=== PATIENT | female | born 1985 | race Caucasian/White ===

== ENCOUNTER 2017-03-20 08:07 | Emergency (ER) | payer MEDICAID ==
[2017-03-20 08:25] VITALS: BP 118/73
[2017-03-20 08:47] LABS: Basophils % (Auto) 0.4 % (0.0-1.8); Eosinophils % (Auto) 1.8 % (0.0-4.3); Hematocrit 45.8 % (30.3-42.9); Hemoglobin 14.5 gm/dl (10.1-14.3); Mean Corpuscular HGB Conc 32 % (30-34); Mean Corpuscular Hemoglobin 28 pg (28-32); Mean Corpuscular Volume 89 fl (79-97); Platelet Count 193 K/mm3 (140-440); Red Blood Count 5.15 M/mm3 (3.65-5.03); Red Cell Distribution Width 16.1 % (13.2-15.2); White Blood Count 8.3 K/mm3 (4.5-11.0)
[2017-03-20 08:52] LABS: Bacteria,Urine 1+ /HPF (Negative); Bilirubin,Urine NEG (Negative); Blood,Urine MOD (Negative); Ketones,Urine NEG (Negative); Leukocyte Esterase,Urine MOD (Negative); Mucus,Urine 2+ /HPF; Nitrite,Urine NEG (Negative); Urobilinogen,Urine < 2.0 mg/dL (<2.0)
[2017-03-20 08:57] LABS: Albumin 3.2 g/dL (3.9-5); Alkaline Phosphatase 49 units/L (35-129); Blood Urea Nitrogen 12 mg/dL (7-17); Calcium 8.2 mg/dL (8.4-10.2); Carbon Dioxide 20 mmol/L (22-30); Glucose 84 mg/dL (65-100); Lipase 39 units/L (13-60); Total Protein 6.3 g/dL (6.3-8.2)
[2017-03-20 08:58] LABS: Chloride 106.5 mmol/L (98-107); Sodium 138 mmol/L (137-145)
[2017-03-20 10:27] LABS: Alanine Aminotransferase 8 units/L (7-56); Anion Gap 16 mmol/L; Potassium 4.9 mmol/L (3.6-5.0)
[2017-03-20] MEDS ORDERED: XYLOCAINE 1% MPF 5 mL INFILTRATI ONE (11:39)
[2017-03-20] MEDS ORDERED: ROCEPHIN IM STA (11:39)
--- NOTE | 2017-03-20 13:50 | Emergency Department Report ---
Entered by MICHELLE STRONG, acting as scribe for BENJI HAHN PA. ED Female HPI - General Chief complaint: Urogenital-Female Stated complaint: POSS BLADDER INFECTION Time Seen by Provider: 03/20/17 10:50 Source: patient Mode of arrival: Ambulatory Limitations: No Limitations - History of Present Illness Initial comments: 31 y/o female with a PMHx of asthma and obesity presents to the ED c/o pelvic pain that began 1 day ago. pain on/oo.Rates pain a 6/10 in severity, which she describes as cramping in quality. Aggravated with urination and alleviated with nothing. No pain at present. Associated symptom includes dysuria, but she denies vaginal discharge, vaginal bleeding, hematuria, urinary urgency and frequency, fever, chills, nausea, vomiting, and diarrhea. Denies taking anything for her symptoms. LMP 02/28/2017. NKDA. No medication taken. Not concern for STD. MD Complaint: dysuria, pelvic pain Onset/Timin -: days(s) Location: other (pelvic area) Radiation: non-radiating Severity: moderate Severity scale (0 -10): 6 Quality: cramping Consistency: constant Improves with: none Worsens with: urination Are you Now?: No Last Menstrual Period: 02/28/17 EDC: 12/05/17 Associated Symptoms: denies other symptoms, abdominal pain (pelvic pain), dysuria. denies: vaginal discharge, vaginal bleeding, nausea/vomiting, fever/ chills, headaches, loss of appetite, hematuria, rash, seizure, shortness of breath, syncope, weakness - Related Data Sexually active: Yes (1 partner for years) Previous Rx's Medication Instructions Recorded Last Taken Type HYDROcodone/APAP 5-325 [[place] 1 each PO Q6HR PRN #16 tablet 01/03/15 Unknown Rx 5/325] Sulfamethoxazole/Trimethoprim 1 each PO Q12H #20 tablet 01/03/15 Unknown Rx [Bactrim Ds] Nitrofurantoin [place]/M-Cryst 100 mg PO Q12HR #14 capsule 03/20/17 Unknown Rx [Macrobid CAP] Phenazopyridine [Pyridium] 100 mg PO TID PRN #9 tab 03/20/17 Unknown Rx Allergies Allergy/AdvReac Type Severity Reaction Status Date / Time No Known Allergies Allergy Unverified 09/24/13 09:12 ED Review of Systems Comment: All other systems reviewed and negative Constitutional: denies: chills, fever Eyes: denies: eye pain, eye discharge, vision change ENT: denies: ear pain, throat pain Respiratory: denies: cough, orthopnea, shortness of breath, SOB with exertion, SOB at rest, stridor, wheezing Cardiovascular: denies: chest pain, palpitations, dyspnea on exertion, orthopnea , edema, syncope, paroxysmal nocturnal dyspnea Endocrine: no symptoms reported Gastrointestinal: abdominal pain (pelvic pain). denies: nausea, vomiting, diarrhea, constipation, hematemesis, melena, hematochezia Genitourinary: dysuria. denies: urgency, frequency, hematuria, discharge, abnormal menses, dyspareunia Musculoskeletal: denies: back pain, joint swelling, arthralgia Skin: denies: rash, lesions Neurological: denies: headache, weakness, numbness, paresthesias, confusion, abnormal gait, vertigo Psychiatric: denies: anxiety, depression Hematological/Lymphatic: denies: easy bleeding, easy bruising ED Past Medical Hx - Past Medical History Previous Medical History?: Yes Hx Hypertension: No Hx Congestive Heart Failure: No Hx Diabetes: No Hx Deep Vein Thrombosis: No Hx Renal Disease: No Hx Sickle Cell Disease: No Hx Seizures: No Hx Asthma: Yes (CHILD) Hx COPD: No Hx HIV: No Additional medical history: Obesity - Surgical History Past Surgical History?: No - Family History Family history: no significant - Social History Smoking Status: Current Every Day Smoker Substance Use Type: Alcohol - Medications Home Medications: Home Medications Medication Instructions Recorded Confirmed Last Taken Type HYDROcodone/APAP 5-325 [[place] 1 each PO Q6HR PRN #16 tablet 01/03/15 Unknown Rx 5/325] Sulfamethoxazole/Trimethoprim 1 each PO Q12H #20 tablet 01/03/15 Unknown Rx [Bactrim Ds] Nitrofurantoin [place]/M-Cryst 100 mg PO Q12HR #14 capsule 03/20/17 Unknown Rx [Macrobid CAP] Phenazopyridine [Pyridium] 100 mg PO TID PRN #9 tab 03/20/17 Unknown Rx ED Physical Exam - General Limitations: No Limitations General appearance: alert, in no apparent distress - Head Head exam: Present: atraumatic, normocephalic, normal inspection - Eye Eye exam: Present: normal appearance, PERRL, EOMI Pupils: Present: normal accommodation - ENT ENT exam: Present: normal exam, normal orophraynx, mucous membranes moist, TM's normal bilaterally, normal external ear exam - Neck Neck exam: Present: normal inspection, full ROM. Absent: tenderness, meningismus, lymphadenopathy - Respiratory Respiratory exam: Present: normal lung sounds bilaterally. Absent: respiratory distress, wheezes, rales, rhonchi, stridor, chest wall tenderness, accessory muscle use, decreased breath sounds - Cardiovascular Cardiovascular Exam: Present: regular rate, normal rhythm, normal heart sounds. Absent: systolic murmur, diastolic murmur, S3, S4 - GI/Abdominal GI/Abdominal exam: Present: soft, normal bowel sounds. Absent: distended, tenderness, guarding, rebound, rigid, mass, bruit, pulsatile mass, hernia - Extremities Exam Extremities exam: Present: normal inspection, full ROM, normal capillary refill. Absent: tenderness, pedal edema, joint swelling, calf tenderness - Back Exam Back exam: Present: normal inspection, full ROM. Absent: tenderness, CVA tenderness (R), CVA tenderness (L), muscle spasm, paraspinal tenderness, vertebral tenderness, rash noted - Neurological Exam Neurological exam: Present: alert, oriented X3, normal gait, reflexes normal. Absent: motor sensory deficit - Psychiatric Psychiatric exam: Present: normal affect, normal mood - Skin Skin exam: Present: warm, dry, intact, normal color. Absent: rash ED Course Vital Signs 03/20/17 08:10 Temperature 98.4 F Pulse Rate 92 H Respiratory 20 Rate Blood Pressure 118/73 O2 Sat by Pulse 100 Oximetry - Reevaluation(s) Reevaluation #1: 03/20/17 13:39 Rocephin 1 g in emergency room to cover urinary tract infection. Urine culture sent ED Medical Decision Making - Lab Data Result diagrams: 03/20/17 08:28 03/20/17 08:28 Lab Results 03/20/17 03/20/17 03/20/17 Range/Units 08:28 08:28 08:28 WBC 8.3 (4.5-11.0) K/mm3 RBC 5.15 H (3.65-5.03) M/mm3 Hgb 14.5 H (10.1-14.3) gm/dl Hct 45.8 H (30.3-42.9) % MCV 89 (79-97) fl MCH 28 (28-32) pg MCHC 32 (30-34) % RDW 16.1 H (13.2-15.2) % Plt Count 193 (140-440) K/mm3 Lymph % (Auto) 31.8 (13.4-35.0) % [place] % (Auto) 7.9 H (0.0-7.3) % Eos % (Auto) 1.8 (0.0-4.3) % Baso % (Auto) 0.4 (0.0-1.8) % Lymph # 2.7 (1.2-5.4) K/mm3 [place] # 0.7 (0.0-0.8) K/mm3 Eos # 0.2 (0.0-0.4) K/mm3 Baso # 0.0 (0.0-0.1) K/mm3 Seg Neutrophils % 58.1 (40.0-70.0) % Seg Neutrophils # 4.9 (1.8-7.7) K/mm3 Sodium 138 (137-145) mmol/L Potassium 4.9 (3.6-5.0) mmol/L Chloride 106.5 (98-107) mmol/L Carbon Dioxide 20 L (22-30) mmol/L Anion Gap 16 mmol/L BUN 12 (7-17) mg/dL Creatinine 0.5 L (0.7-1.2) mg/dL Estimated GFR > 60 ml/min BUN/Creatinine Ratio 24.00 % Glucose 84 (65-100) mg/dL Calcium 8.2 L (8.4-10.2) mg/dL Total Bilirubin 0.20 (0.1-1.2) mg/dL AST 17 (5-40) units/L ALT 8 (7-56) units/L Alkaline Phosphatase 49 (35-129) units/L Total Protein 6.3 (6.3-8.2) g/dL Albumin 3.2 L (3.9-5) g/dL Albumin/Globulin Ratio 1.0 % Lipase 39 (13-60) units/L HCG, Qual (Negative) Urine Color Yellow (Yellow) Urine Turbidity Slightly-cloudy (Clear) Urine pH 5.0 (5.0-7.0) Ur Specific [place] 1.021 (1.003-1.030) Urine Protein 100 mg/dl (Negative) mg/dL Urine Glucose (UA) Neg (Negative) mg/dL Urine Ketones Neg (Negative) mg/dL Urine Blood Mod (Negative) Urine Nitrite Neg (Negative) Urine Bilirubin Neg (Negative) Urine Urobilinogen < 2.0 (<2.0) mg/dL Ur Leukocyte Esterase Mod (Negative) Urine WBC (Auto) 131.0 H (0.0-6.0) /HPF Urine RBC (Auto) 22.0 (0.0-6.0) /HPF U Epithel Cells (Auto) 5.0 (0-13.0) /HPF Urine Bacteria (Auto) 1+ (Negative) /HPF Urine Mucus 2+ /HPF 03/20/17 Range/Units 08:28 WBC (4.5-11.0) K/mm3 RBC (3.65-5.03) M/mm3 Hgb (10.1-14.3) gm/dl Hct (30.3-42.9) % MCV (79-97) fl MCH (28-32) pg MCHC (30-34) % RDW (13.2-15.2) % Plt Count (140-440) K/mm3 Lymph % (Auto) (13.4-35.0) % [place] % (Auto) (0.0-7.3) % Eos % (Auto) (0.0-4.3) % Baso % (Auto) (0.0-1.8) % Lymph # (1.2-5.4) K/mm3 [place] # (0.0-0.8) K/mm3 Eos # (0.0-0.4) K/mm3 Baso # (0.0-0.1) K/mm3 Seg Neutrophils % (40.0-70.0) % Seg Neutrophils # (1.8-7.7) K/mm3 Sodium (137-145) mmol/L Potassium (3.6-5.0) mmol/L Chloride (98-107) mmol/L Carbon Dioxide (22-30) mmol/L Anion Gap mmol/L BUN (7-17) mg/dL Creatinine (0.7-1.2) mg/dL Estimated GFR ml/min BUN/Creatinine Ratio % Glucose (65-100) mg/dL Calcium (8.4-10.2) mg/dL Total Bilirubin (0.1-1.2) mg/dL AST (5-40) units/L ALT (7-56) units/L Alkaline Phosphatase (35-129) units/L Total Protein (6.3-8.2) g/dL Albumin (3.9-5) g/dL Albumin/Globulin Ratio % Lipase (13-60) units/L HCG, Qual Negative (Negative) Urine Color (Yellow) Urine Turbidity (Clear) Urine pH (5.0-7.0) Ur Specific [place] (1.003-1.030) Urine Protein (Negative) mg/dL Urine Glucose (UA) (Negative) mg/dL Urine Ketones (Negative) mg/dL Urine Blood (Negative) Urine Nitrite (Negative) Urine Bilirubin (Negative) Urine Urobilinogen (<2.0) mg/dL Ur Leukocyte Esterase (Negative) Urine WBC (Auto) (0.0-6.0) /HPF Urine RBC (Auto) (0.0-6.0) /HPF U Epithel Cells (Auto) (0-13.0) /HPF Urine Bacteria (Auto) (Negative) /HPF Urine Mucus /HPF Urine culture sent - Medical Decision Making ED course: An hair complaining of burning with urination abdominal cramping on and off. Denies any concern for STD, vaginal discharge, blood in urine. Patient found to have acute cystitis with hematuria. She was given Rocephin 1 g IM in emergency room for UTI. Urinalysis positive for bacteria and white blood cells leukocyte Estrace and blood. Urine culture sent and pending. CBC stable with normal white count, BMP mildly abnormal values but no critical values. HCG negative Diagnosis and treatment plan discussed the patient and she voiced understanding. Diagnostic/labs: See lab section for details on results. Assessment/plan 1. Acute cystitis with hematuria 2. Pelvic pain, prosodic started yesterday 3. Dysuria She discharged home from emergency room she is able to tolerate oral liquids. She was given prescription for Macrobid and Pyridium and to follow-up with her primary care physician in 2 days ED Disposition Clinical Impression: Dysuria, Acute cystitis with hematuria, Pelvic pain Disposition: TO HOME OR SELFCARE Is pt being admited?: No Does the pt Need Aspirin: No Condition: Stable Instructions: Urinary Tract Infection in Women (ED), Dysuria (ED) Additional Instructions: Increase her fluid intake to 2-3 L of fluid to include mostly water per day Take antibiotic for urinary tract infection Please Up primary care doctor in 2 days Prescriptions: Nitrofurantoin [place]/M-Cryst [Macrobid CAP] 100 mg PO Q12HR #14 capsule Phenazopyridine [Pyridium] 100 mg PO TID PRN #9 tab PRN Reason: URINE BURNING Referrals: PRIMARY CARE, [Primary Care Provider] - 03/22/17 [facility] [place] [Outside] - 3-5 Days Forms: Work/School Release Form(ED) This documentation as recorded by the TAE valderrama JASMINE,accurately reflects the service I personally performed and the decisions made by me,BENJI HAHN PA.
== END 2017-03-20 14:25 | disposition home or self-care (01) ==
LOC: ED 08:07
DX: N30.01 Acute cystitis with hematuria (principal); F17.200 Nicotine dependence, unspecified, uncomplicated
CPT/HCPCS: 36415; 80053; 81001; 83690; 84703; 85025; 87086; 96372; 99283; J0696

== ENCOUNTER 2017-11-26 16:27 | Emergency (ER) | payer MEDICAID, OTHER ==
[2017-11-26 16:36] VITALS: BP 110/66
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
[2017-11-26] MEDS ORDERED: MOTRIN PO ONE (18:24)
== END 2017-11-26 18:33 | disposition home or self-care (01) ==
LOC: ED 16:27
DX: S39.012A Strain of muscle, fascia and tendon of lower back, initial encounter (principal); S13.4XXA Sprain of ligaments of cervical spine, initial encounter; V89.2XXA Person injured in unspecified motor-vehicle accident, traffic, initial encounter; Y93.89 Activity, other specified; Y92.89 Other specified places as the place of occurrence of the external cause; Y99.8 Other external cause status
CPT/HCPCS: 99282

== ENCOUNTER 2022-03-13 09:46 | Outpatient (CLI) | payer OTHER | END 2022-03-13 09:47 | disposition home or self-care (01) | LOC: LABHHL 09:46 | PROVIDERS: ATTEND Surgery | DX: N63.25 Unspecified lump in the left breast, overlapping quadrants (principal) | CPT/HCPCS: 88305 ==

== ENCOUNTER 2022-04-05 09:51 | Outpatient (CLI) | payer OTHER ==
--- NOTE | 2022-04-05 12:29 | Mammography Report ---
BILATERAL DIGITAL DIAGNOSTIC MAMMOGRAM CONVENTIONAL, 04/05/2022 RIGHT LIMITED BREAST ULTRASOUND CLINICAL INFORMATION / INDICATION: Patient presents for evaluation of an area of palpable concern in the right breast. Patient has a history of prior breast reduction. TECHNIQUE: Digital bilateral mammographic imaging was performed. Spot compression views were obtained . Limited ultrasound was performed. COMPARISON: Baseline FINDINGS: Breast Density: The breasts are almost entirely fatty. MAMMOGRAPHIC FINDINGS: No dominant mass, suspicious calcifications, or architectural distortion in ei ther breast. There is benign postreduction change seen in both breasts. Corresponding with the site o f palpable concern in the posterior 6:00 position of the right breast, there is a 9 mm benign oil cys t. Targeted ultrasound was performed for confirmation. ULTRASOUND FINDINGS: Targeted ultrasound evaluation was performed of the area of interest. Targeted ultrasound of the area of palpable concern in the right breast 7:00 position demonstrates a 9 mm sup erficial benign cyst, compatible with the benign oil cyst as seen on mammogram. No suspicious sonogra phic abnormality identified. IMPRESSION: 1. A benign oil cyst accounts for the area of palpable concern in the right breast. No suspicious shannon mographic or sonographic abnormality identified. Follow up recommendation: Unless otherwise clinically indicated, recommend patient return to routine yearly screening mammography at age 40. BI-RADS Category 2: BENIGN. A "normal" or negative report should not discourage follow up or biopsy of a clinically significant f inding. A written summary of these findings will be mailed to the patient. The patient will be entered into a mammography reporting system which will generate a reminder letter for the patient's next appointmen t at the appropriate interval. According to the [employer], yearly mammograms are recommended starting at age 40 and continuing as long as a woman is in good health. Breast MRI is recommended for women with an jeremy roximately 20-25% or greater lifetime risk of breast cancer, including women with a strong family his tory of breast or ovarian cancer and women who have been treated for Hodgkin's disease. Signer Name: Anitra Torres MD Signed: 04/05/2022 12:25 PM Workstation Name: [email or web address]
== END 2022-04-05 09:52 | disposition home or self-care (01) ==
LOC: MAMMO 09:51
PROVIDERS: ATTEND Surgery
DX: D24.1 Benign neoplasm of right breast (principal); N60.01 Solitary cyst of right breast
CPT/HCPCS: 77066